=== PATIENT | female | born 1950 | race Caucasian/White ===

== ENCOUNTER 2018-01-17 12:31 | Emergency (ER) | payer MEDICARE, OTHER ==
--- NOTE | 2018-01-17 12:48 | ER Document Report ---
ED Medical Screen (RME) - General Chief Complaint: Leg Pain Stated Complaint: RIGHT LEG PAIN Time Seen by Provider: 01/17/18 12:39 Notes: Patient with history of blood clots in her right leg presents with leg pain in medial upper right thigh that started this morning. Recently drove from [place] approximately 3 and half hours day before. Patient has been on anticoagulation was taken off last month. Was on anticoagulation approximately 3 months after DVT event. 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 After also taken from left leg but she has not had any complications with that extremity. Denies any chest pain or shortness of breath at this time I have greeted and performed a rapid initial assessment of this patient. A comprehensive ED assessment and evaluation of the patient, analysis of test results and completion of the medical decision making process will be conducted by additional ED providers. PHYSICAL EXAMINATION: GENERAL: Well-appearing, well-nourished and in no acute distress. HEAD: Atraumatic, normocephalic. EYES: Pupils equal round extraocular movements intact, conjunctiva are normal. ENT: Nares patent NECK: Normal range of motion LUNGS: No respiratory distress Musculoskeletal: Normal range of motion, mild swelling RLE compared to LLE, no erythema NEUROLOGICAL: Normal speech, normal gait. PSYCH: Normal mood, normal affect. SKIN: Warm, Dry, normal turgor, no rashes or lesions noted. - Related Data Allergies/Adverse Reactions: amoxicillin Adverse Reaction (Verified 01/17/18 12:37) azithromycin [From Zithromax] Adverse Reaction (Verified 01/17/18 12:37) codeine Adverse Reaction (Verified 01/17/18 12:37) cyclobenzaprine [From Flexeril] Adverse Reaction (Verified 01/17/18 12:37) diazepam [From Valium] Adverse Reaction (Verified 01/17/18 12:37) hydrocodone Adverse Reaction (Verified 01/17/18 12:37) hydromorphone Adverse Reaction (Verified 01/17/18 12:37) hydroxyzine Adverse Reaction (Verified 01/17/18 12:37) ibuprofen [From Motrin] Adverse Reaction (Verified 01/17/18 12:37) meloxicam Adverse Reaction (Verified 01/17/18 12:37) naproxen Adverse Reaction (Verified 01/17/18 12:37) oxycodone Adverse Reaction (Verified 01/17/18 12:37) promethazine Adverse Reaction (Verified 01/17/18 12:37) ranitidine [From Zantac] Adverse Reaction (Verified 01/17/18 12:37) sulfamethoxazole [From Bactrim] Adverse Reaction (Verified 01/17/18 12:37) tizanidine Adverse Reaction (Verified 01/17/18 12:37) trimethoprim [From Bactrim] Adverse Reaction (Verified 01/17/18 12:37) Past Medical History - Social History Chew tobacco use (# tins/day): No Frequency of alcohol use: None Drug Abuse: None Renal/ Medical History: Denies: Hx Peritoneal Dialysis Physical Exam - Vital signs Vitals: Temp Pulse Resp BP Pulse Ox 98.5 F 71 18 131/69 H 100 01/17/18 12:36 01/17/18 12:36 01/17/18 12:36 01/17/18 12:36 01/17/18 12:36 Course - Vital Signs Vital signs: Temp Pulse Resp BP Pulse Ox 98.5 F 71 18 131/69 H 100 01/17/18 12:36 01/17/18 12:36 01/17/18 12:36 01/17/18 12:36 01/17/18 12:36
--- NOTE | 2018-01-17 13:41 | ER Document Report ---
ED Extremity Problem, Lower <TANGELA CASTELLANOS - Last Filed: 01/17/18 14:45> - General Mode of Arrival: Ambulatory Information source: Patient <TARAN BOO - Last Filed: 01/17/18 15:20> - General Chief Complaint: Leg Pain Stated Complaint: RIGHT LEG PAIN Time Seen by Provider: 01/17/18 12:39 Notes: Patient is a 67 year old female with a history of DVT presents to the emergency department complaining of right upper thigh and popliteal pain onset last night around 0200. Patient states she took a 3.5 hour ride from [place] yesterday to visit family and for vacation. She states she noticed her right leg began to swell today. Of significance, patient had a DVT after a 4 vessel CABG and venous graft in right leg in Aug,. She was subsequently placed on Coumadin for 3 months and was taken off January 02, 2018. Patient is currently taking Aspirin, Metoprolol and Alprazolam. (TARAN BOO) - Related Data Allergies/Adverse Reactions: amoxicillin Adverse Reaction (Verified 01/17/18 12:49) azithromycin [From Zithromax] Adverse Reaction (Verified 01/17/18 12:49) codeine Adverse Reaction (Verified 01/17/18 12:49) cyclobenzaprine [From Flexeril] Adverse Reaction (Verified 01/17/18 12:49) diazepam [From Valium] Adverse Reaction (Verified 01/17/18 12:49) hydrocodone Adverse Reaction (Verified 01/17/18 12:49) hydromorphone Adverse Reaction (Verified 01/17/18 12:49) hydroxyzine Adverse Reaction (Verified 01/17/18 12:49) ibuprofen [From Motrin] Adverse Reaction (Verified 01/17/18 12:49) meloxicam Adverse Reaction (Verified 01/17/18 12:49) naproxen Adverse Reaction (Verified 01/17/18 12:49) oxycodone Adverse Reaction (Verified 01/17/18 12:49) promethazine Adverse Reaction (Verified 01/17/18 12:49) ranitidine [From Zantac] Adverse Reaction (Verified 01/17/18 12:49) sulfamethoxazole [From Bactrim] Adverse Reaction (Verified 01/17/18 12:49) tizanidine Adverse Reaction (Verified 01/17/18 12:49) trimethoprim [From Bactrim] Adverse Reaction (Verified 01/17/18 12:49) Past Medical History - General Information source: Patient - Social History Smoking Status: Never Smoker Chew tobacco use (# tins/day): No Frequency of alcohol use: None Drug Abuse: None Family History: Reviewed & Not Pertinent Patient has suicidal ideation: No Patient has homicidal ideation: No - Past Medical History Cardiac Medical History: Reports: Hx DVT Past Surgical History: Reports: Hx Abdominal Surgery - hernia repair, Hx Breast Surgery - biopsy, Hx Cardiac Surgery - bypass, Hx Cholecystectomy, Hx Hysterectomy, Hx Orthopedic Surgery - rt shoulder <TARAN BOO - Last Filed: 01/17/18 15:20> Review of Systems - Review of Systems Constitutional: No symptoms reported EENT: No symptoms reported Cardiovascular: No symptoms reported Respiratory: No symptoms reported Gastrointestinal: No symptoms reported Genitourinary: No symptoms reported Female Genitourinary: No symptoms reported Musculoskeletal: See HPI Skin: No symptoms reported Hematologic/Lymphatic: No symptoms reported Neurological/Psychological: No symptoms reported -: Yes All other systems reviewed and negative <TARAN BOO - Last Filed: 01/17/18 15:20> Physical Exam - General General appearance: Appears well, Alert In distress: None - HEENT Head: Normocephalic, Atraumatic Eyes: Normal Extraocular movements intact: Yes Pupils: PERRL Neck: Normal - Respiratory Respiratory status: No respiratory distress - Cardiovascular Rhythm: Regular Heart sounds: Normal auscultation Murmur: No Friction rub: No Gallop: None auscultated - Back Back: Normal - Extremities General upper extremity: Normal ROM General lower extremity: Normal ROM Thigh: Tender - Right medial thigh tender to palpation with some swelling, also containts a well healed scar from saphenectomy. Bruising distal to the right medial thigh, patient states this is chronic from the saphenectomy. - Neurological Neuro grossly intact: Yes Cognition: Normal Orientation: AAOx4 Corazon Coma Scale Eye Opening: Spontaneous Corazon Coma Scale Verbal: Oriented Corazon Coma Scale Motor: Obeys Commands Chaumont Coma Scale Total: 15 Speech: Normal - Psychological Associated symptoms: Normal affect, Normal mood - Skin Skin Temperature: Warm Skin Moisture: Dry <TARAN BOO - Last Filed: 01/17/18 15:20> - Vital signs Vitals: Temp Pulse Resp BP Pulse Ox 98.5 F 71 18 131/69 H 100 01/17/18 12:36 01/17/18 12:36 01/17/18 12:36 01/17/18 12:36 01/17/18 12:36 Course - Laboratory Result Diagrams: 01/17/18 13:50 01/17/18 13:50 <TANGELA CASTELLANOS - Last Filed: 01/17/18 14:45> - Laboratory Result Diagrams: 01/17/18 13:50 01/17/18 13:50 <TARAN BOO - Last Filed: 01/17/18 15:20> - Re-evaluation Re-evalutation: 01/17/18 14:45 The patient's d-dimer is 0.48, which is slightly below the cutoff for a positive result. White blood cell count is 5600 with 43 segs and 43 lymphs, the total CK is 201 which is only slightly above the cutoff for normal with this lab. The venous Doppler is negative for DVT or SVT. (TANGELA CASTELLANOS) - Vital Signs Vital signs: Temp Pulse Resp BP Pulse Ox 98.6 F 78 16 129/88 H 100 01/17/18 15:00 01/17/18 15:00 01/17/18 15:00 01/17/18 15:00 01/17/18 15:00 - Laboratory Laboratory results interpreted by me: 01/17/18 01/17/18 13:50 13:50 RBC 3.50 L Hgb 11.2 L Hct 32.3 L RDW 14.4 H Creatine Kinase 201 H Discharge <TANGELA CASTELLANOS - Last Filed: 01/17/18 14:45> <TARAN BOO - Last Filed: 01/17/18 15:20> - Discharge Clinical Impression: Pain of right lower extremity Condition: Stable Disposition: HOME, SELF-CARE Additional Instructions: The venous Doppler did not show evidence of clot. A D-dimer test was slightly below the cutoff for positive, also suggesting no evidence of clot. The white blood cell count was low normal which would indicate a low likelihood of an infectious cause for your pain. The total CK which is a muscle enzyme was not elevated enough to suggest a significant muscle injury. At this time there is no clear cut explanation for your discomfort, however the laboratory, radiological, and physical findings do not suggest that this is due to blood clots, infection, or significant injury. For now you should elevate the leg and limit walking as much as possible. Use moist heat to the painful areas on the lower extremity. Take Tylenol for pain. Follow-up with a local medical doctor or with your primary care doctor if not improving. RETURN TO THE EMERGENCY ROOM IF ANY NEW OR WORSENING SYMPTOMS. [employer] Attestation: 01/17/18 13:56 I personally performed the services described in the documentation, reviewed and edited the documentation which was dictated to the scribe in my presence, and it accurately records my words and actions. (TANGELA CASTELLANOS) Scribe Documentation - Scribe Written by Rubén:: Rubén Brewer, 01/17/2018 13:53 acting as scribe for :: Piedad <TARAN BOO - Last Filed: 01/17/18 15:20>
[2018-01-17 14:04] LABS: ABSOLUTE EOSINOPHILS # (AUTO) 0.2 10^3/uL (0.0-0.6); ABSOLUTE LYMPHOCYTES (AUTO) 2.4 10^3/uL (0.5-4.7); ABSOLUTE MONOCYTES (AUTO) 0.5 10^3/uL (0.1-1.4); ABSOLUTE NEUT (AUTO) 2.4 10^3/uL (1.7-8.2); BASOPHILS % (AUTO) 0.6 % (0-2); EOSINOPHILS % (AUTO) 4.1 % (0-6); HEMATOCRIT 32.3 % (36.0-47.0); HEMOGLOBIN 11.2 g/dL (12.0-15.5); LYMPHOCYTES % (AUTO) 43.5 % (13-45); MEAN CORPUSCULAR HEMOGLOBIN 31.9 pg (27.0-33.4); MEAN CORPUSCULAR HGB CONC 34.6 g/dL (32.0-36.0); MEAN CORPUSCULAR VOLUME 92 fl (80-97); MONOCYTES % (AUTO) 8.8 % (3-13); PLATELET COUNT 191 10^3/uL (150-450); RED CELL DISTRIBUTION WIDTH 14.4 % (11.5-14.0); TOTAL CELLS COUNTED % (AUTO) 100 %; WHITE BLOOD COUNT 5.6 10^3/uL (4.0-10.5)
--- NOTE | 2018-01-17 14:07 | RADIOLOGY REPORT (SQ) ---
EXAM DESCRIPTION: VENOUS UNILATERAL LOWER COMPLETED DATE/TIME: 01/17/2018 1:57 pm REASON FOR STUDY: R leg pain, hx of DVT COMPARISON: None. TECHNIQUE: Dynamic and static benito scale and color images acquired of the right leg venous system. S elected spectral images acquired with additional compression and augmentation maneuvers. The contrala teral common femoral vein and saphenofemoral junction were also imaged. Images stored on PACS. LIMITATIONS: None. FINDINGS: COMMON FEMORAL: Normal phasicity, compression and augmentation. No visualized echogenic ma terial on benito scale. No defects on color images. FEMORAL: Normal compression and augmentation. No visualized echogenic material on benito scale. No defe cts on color images. POPLITEAL: Normal compression, augmentation. No visualized echogenic material on benito scale. No defec ts on color images. CALF VESSELS: Normal compression, augmentation. No visualized echogenic material on benito scale. No de fects on color images. GSV and SSV: Greater saphenous partially harvested. ANY DEEP VENOUS INSUFFICIENCY: Not evaluated. ANY EVIDENCE OF POPLITEAL CYST: No. OTHER: No other significant finding. CONTRALATERAL COMMON FEMORAL VEIN AND SAPHENOFEMORAL JUNCTION: Normal phasicity, compression and augmentation. No visualized echogenic material on benito scale. No de fects on color images. IMPRESSION: NO EVIDENCE DVT OR SVT IN THE RIGHT LEG. TECHNICAL DOCUMENTATION: JOB ID: [id number] [employer]- All Rights Reserved Reading location - IP/workstation name: [email or web address]
[2018-01-17 14:09] LABS: INTERNATIONAL RATION (INR) 0.98; PROTHROMBIN TIME 13.5 SEC (11.4-15.4)
[2018-01-17 14:12] LABS: D-DIMER 0.48 ug/mL (0.00-0.50)
[2018-01-17 14:24] LABS: ALANINE AMINOTRANSFERASE 21 U/L (9-52); ALBUMIN 3.8 g/dL (3.5-5.0); ALKALINE PHOSPHATASE 64 U/L (38-126); ANION GAP 11 (5-19); ASPARTATE AMINO TRANSFERASE 21 U/L (14-36); BILIRUBIN,DIRECT 0.3 mg/dL (0.0-0.4); BILIRUBIN,TOTAL 0.3 mg/dL (0.2-1.3); BLOOD UREA NITROGEN 20 mg/dL (7-20); CALCIUM 9.2 mg/dL (8.4-10.2); CARBON DIOXIDE 28 mmol/L (22-30); CHLORIDE 106 mmol/L (98-107); CREATINE KINASE 201 U/L (30-135); GLUCOSE 91 mg/dL (75-110); POTASSIUM 4.4 mmol/L (3.6-5.0); TOTAL PROTEIN 6.4 g/dL (6.3-8.2)
[2018-01-17 15:03] VITALS: BP 129/88
== END 2018-01-17 15:04 | disposition home or self-care (01) ==
LOC: ER 12:31
DX: M79.651 Pain in right thigh (principal); M79.89 Other specified soft tissue disorders; M25.561 Pain in right knee; Z86.718 Personal history of other venous thrombosis and embolism; Z79.82 Long term (current) use of aspirin; Z79.899 Other long term (current) drug therapy
CPT/HCPCS: 36415; 80053; 82550; 85025; 85379; 85610; 93971; 99284